=== PATIENT | female | born 1960 | race Caucasian/White ===

== ENCOUNTER → 2018-03-15 | Outpatient (CLI) | payer OTHER ==
[~2018-03-15] MED LIST: GADOBUTROL 10 ML VIAL IVP ONE
== END ==
LOC: FIMAGING 11:58
PROVIDERS: ATTEND Nurse Practitioner Family
DX: M48.04 Spinal stenosis, thoracic region (principal); M51.24 Other intervertebral disc displacement, thoracic region
CPT/HCPCS: 82565-PO; A9585

== ENCOUNTER 2018-08-31 12:28 | Day surgery (SDC) | payer OTHER ==
[2018-08-31] MEDS ORDERED: LR 1,000 ML IV ONE (13:18)
--- NOTE | 2018-08-31 14:26 | PDANEPAE ---
ANE History of Present Illness EGD for f/u esophageal varices banding ANE Past Medical History - Cardiovascular History Hx Hypertension: Yes Hx Arrhythmias: No Hx Chest Pain: No Hx Coronary Artery / Peripheral Vascular Disease: No Hx CHF / Valvular Disease: No Hx Palpitations: No - Pulmonary History Hx COPD: Yes Hx Asthma/Reactive Airway Disease: No Hx Recent Upper Respiratory Infection: No Hx Oxygen in Use at Home: No Hx Sleep Apnea: No Sleep Apnea Screening Result - Last Documented: Negative - Neurologic History Hx Cerebrovascular Accident: No Hx Seizures: No Hx Dementia: No - Endocrine History Hx Diabetes: Yes Hypothyroid: No Hyperthyroid: No Obesity: no - Renal History Hx Renal Disorders: No - Liver History Hx Hepatic Disorders: Yes Hepatic History Comment: cirrhosis - Neurological & Psychiatric Hx Hx Neurological and Psychiatric Disorders: Yes Neurological / Psychiatric History Comment: depression - Cancer History Hx Cancer: No - Congenital Disorder History Hx Congenital Disorders: No - GI History GERD: no Hx Gastrointestinal Disorders: Yes Gastrointestinal History Comment: GI bleed, varies - Other Health History Other Health History: anemia. dentures - Chronic Pain History Chronic Pain: Yes (back pain) - Surgical History Prior Surgeries: none in last 5 yrs ANE Review of Systems Review of Systems: - Exercise capacity Exercise capacity: limited by disability METS (RN): 3 METS ANE Patient History - Allergies Allergies/Adverse Reactions: No Known Allergies Allergy (Verified 08/25/18 10:39) - Home Medications Home medications: home medication list seen and reviewed Home Medications: Breo Ellipta 100-25 Mcg INH 08/25/18 [Last Taken 08/30/18] Ferosul 08/25/18 [Last Taken 08/30/18] Gabapentin 08/25/18 [Last Taken 08/31/18 07:00] Iron 08/25/18 [Last Taken 08/30/18] Lisinopril 08/25/18 [Last Taken 08/30/18] Magnesium 08/25/18 [Last Taken 08/30/18] Metformin HCl 08/25/18 [Last Taken 08/30/18] Omeprazole 08/25/18 [Last Taken 08/30/18] Sertraline HCl 08/25/18 [Last Taken 08/30/18] Spironolactone 08/25/18 [Last Taken 08/29/18] Lantus 30 units SQ DAILY 08/31/18 [Last Taken 08/30/18 21:00] - NPO status NPO Status: no food or drink >8 hours NPO Since - Liquids (Date): 08/31/18 NPO Since - Liquids (Time): 07:00 NPO Since - Solids (Date): 08/26/18 - Anes Hx Anes Hx: no prior problems - Smoking Hx Smoking Status: Heavy smoker - Family Anes Hx Family Hx Anesthesia Complications: none ANE Labs/Vital Signs - Vital Signs Vital Signs: reviewed preoperatively; see RN documention for details Blood Pressure: 101/67 Heart Rate: 79 Respiratory Rate: 20 O2 Sat (%): 88 Height: 157.48 cm Weight: 63.503 kg ANE Physical Exam - Airway Neck exam: FROM Mallampati Score: Class 2 Mouth exam: poor dentition (edentolous) - Pulmonary Pulmonary: no respiratory distress - Cardiovascular Cardiovascular: regular rate and rhythym - ASA Status ASA Status: IV ANE Anesthesia Plan Anesthesia Plan: GA with mask
[2018-08-31] MEDS ORDERED: PROPOFOL 200 MG/20 ML VIAL ONE ×2 (14:36)
--- NOTE | 2018-08-31 14:40 | PDGENHP ---
History & Physical Chief Complaint: Cirrhosis Pertinent Past, Social, Family History: Follow up EGD for esophageal varices Relevant Physical Exam: DM. Cirrhosis likely secondary to alcohol. HTN. Esophageal varices with prior UGI bleed and banding. NAD. Chronically ill appearing. Coarse BS with prolonged expiratory phase. RRR. BILL 2/6 LSB. GI soft. Midline surgical scar. Small ascites. NT/ND Cardiorespiratory Assessment: ASA III. EGD with possible band ligation
--- NOTE | 2018-08-31 14:56 | GIREPORT ---
Formerly [facility] Surgical Services - Endoscopy Department Patient Name: Qiana Sweet Procedure Date: 08/31/2018 2:40 PM Patient Type: Outpatient Attending MD/ ER Physician: Cisco Zeng MD Procedure: Upper GI endoscopy Indications: Cirrhosis with suspected esophageal varices Providers: Cisco Zeng MD Medicines: Propofol per Anesthesia Complications: No immediate complications. Description of Procedure: After obtaining informed consent, the endoscope was passed under direct vision. Throughout the procedure, the patient's blood pressure, pulse, and oxygen saturations were monitored continuously. The Endoscope was intro duced through the mouth, and advanced to the second part of duodenum. [facility] er GI endoscopy was accomplished without difficulty. The patient tolerated th e procedure well. Findings: Two columns of non-bleeding grade I varices were found in the lower thi rd of the esophagus, 33 cm from the incisors. They were 3 [address] largest di[address] ter. No stigmata of recent bleeding were evident and no red gerardo signs were present. Stigmata of prior treatment were evident. Scarring from prior treatment was visible. Mild portal hypertensive gastropathy was found in the entire examined stomach. The examined duodenum was normal. Estimated Blood Loss: Estimated blood loss: none. Post Op Diagnosis: - Non-bleeding grade I esophageal varices. - Portal hypertensive gastropathy. - Normal examined duodenum. - No specimens collected. Recommendation: - Repeat upper endoscopy in 1 year for surveillance. - No aspirin, ibuprofen, naproxen, or other non-steroidal anti-inflamma tory drugs. - I would not recommend beta-yobani therapy for variceal bleeding prophylaxis given her COPD and Diabetes. - Return to physician security assistant as previously scheduled. - Patient has a contact number available for emergencies. The signs and symptoms of potential delayed complications were discussed with the pat ient. Return to normal activities tomorrow. Written discharge instructions we re provided to the patient. - Thank you for allowing me to be involved in the care of your patient. Attending Participation: I personally performed the entire procedure without the assistance of a fellow, resident or surg ical security assistant. Cisco Zeng MD Cisco Zeng MD 08/31/2018 2:55:38 PM This report has been signed electronicallyDavid MD Karri Number of Addenda: 0 Note Initiated On: 08/31/2018 2:40 PM [email or web address]
--- NOTE | 2018-08-31 15:05 | POSTANESTH ---
Post Anesthetic Evaluation Cardiovascular Status: Normal, Stable Respiratory Status: Normal, Stable Level of Consciousness/Mental Status: Can Participate in Eval Pain Control: Adequate, Prn Tx Ordered Nausea/Vomiting Control: Adequate, Prn Tx Ordered Complications Possibly Related to Anesthesia: None Noted
[2018-08-31 15:52] VITALS: BP 97/63
== END 2018-08-31 17:02 | disposition home or self-care (01) ==
LOC: FSGY 12:28
PROVIDERS: ATTEND Internal Medicine Gastroenterology
PROC: 0DJ08ZZ Inspection of Upper Intestinal Tract, Via Natural or Artificial Opening Endoscopic (ICD-10-PCS; principal; 2018-08-31 14:15)
DX: K74.60 Unspecified cirrhosis of liver (principal); I85.10 Secondary esophageal varices without bleeding; K31.89 Other diseases of stomach and duodenum; E11.69 Type 2 diabetes mellitus with other specified complication; I10 Essential (primary) hypertension; F17.210 Nicotine dependence, cigarettes, uncomplicated
CPT/HCPCS: J2704

== ENCOUNTER → 2018-09-02 | Outpatient (CLI) | payer OTHER | LOC: CIMAGING 10:55 | PROVIDERS: ATTEND Nurse Practitioner Family | DX: M43.16 Spondylolisthesis, lumbar region (principal); M51.36 Other intervertebral disc degeneration, lumbar region; M16.12 Unilateral primary osteoarthritis, left hip; Z98.1 Arthrodesis status | CPT/HCPCS: 72100-PO ==

== ENCOUNTER → 2018-11-04 | Outpatient (CLI) | payer OTHER | LOC: FIMAGING 09:49 | PROVIDERS: ATTEND Nurse Practitioner Family | DX: Z13.820 Encounter for screening for osteoporosis (principal); M83.9 Adult osteomalacia, unspecified; Z78.0 Asymptomatic menopausal state ==

== ENCOUNTER → 2018-11-16 | Outpatient (CLI) | payer OTHER | LOC: CIMAGING 10:59 | PROVIDERS: ATTEND Nurse Practitioner Family | DX: J98.09 Other diseases of bronchus, not elsewhere classified (principal); F17.200 Nicotine dependence, unspecified, uncomplicated | CPT/HCPCS: 71046-PO ==

== ENCOUNTER → 2019-01-21 | Outpatient (CLI) | payer OTHER | LOC: CIMAGING 09:54 | PROVIDERS: ATTEND Internal Medicine Geriatric Medicine | DX: Z47.1 Aftercare following joint replacement surgery (principal); Z96.642 Presence of left artificial hip joint | CPT/HCPCS: 73502-PO ==